=== PATIENT | male | born 2000 | race Caucasian/White ===

== ENCOUNTER → 2024-08-13 13:30 | Outpatient (CLI) | payer OTHER, SELFPAY ==
--- NOTE | 2024-08-13 13:33 | DI.MRI.S_ITS ---
PROCEDURE: MR ANKLE RT WO CON INDICATIONS: APRIN INJURY SHOWING AVULSION TECHNIQUE: Noncontrast sagittal T1 spin echo and T2 fast spin echo with fat saturation, axial proton density fast spin echo and T2 fast spin echo with fat saturation, coronal T1 spin echo and T2 fast spin echo with fat saturation through the ankle/hindfoot. COMPARISON: None. FINDINGS: Image quality: Excellent. Bones and joints: Mild osseous edema at the medial malleolus and medial talus. No focal fracture line is seen. No clearly defined avulsion fragment, although MRI is relatively insensitive for small ossifications. No hindfoot coalitions. No osteochondral injuries of the talar dome. Medial structures: Focal intrasubstance fluid signal is seen within the deep fibers of deltoid ligament suspicious for a moderate grade sprain. Mild tenosynovitis of the distal posterior tibialis tendon. The flexor digitorum longus and flexor hallucis longus tendons are intact. The posterior tibial neurovascular bundle appears normal within the tarsal tunnel, without extrinsic mass effect. Lateral structures: There is full-thickness tearing of the anterior talofibular ligament at its fibular attachment. Low-grade sprain of the calcaneofibular ligament. Posterior talofibular ligament is intact. Anterior and posterior tibiofibular ligaments are intact. [id number] peroneus brevis and longus tendinosis and tenosynovitis. The sinus tarsi demonstrates normal fatty signal. Anterior structures: The tibialis anterior, extensor hallucis longus, and extensor digitorum longus tendons appear intact. Posterior and plantar structures: Achilles tendon is intact. The proximal plantar fascia is intact. No abductor digiti minimi muscle atrophy to suggest Nagy neuropathy. IMPRESSION: 1. Full-thickness tearing of the anterior talofibular ligament near its fibular attachment. Grade 1 sprain of the calcaneofibular ligament. 2. [id number] peroneus brevis and longus tendinosis and tenosynovitis. 3. Grade 2 sprain of the deltoid ligament. 4. Mild posterior tibialis tenosynovitis. 5. Mild osseous contusions at the medial malleolus and medial talus. Approved by: Gamal Chávez M.D. on 08/15/2024 at 9:48
== END ==
PROVIDERS: Referring Provider Student in an Organized Health Care Education/Training Program; Visit Provider Student in an Organized Health Care Education/Training Program
DX: S93.491A Sprain of other ligament of right ankle, initial encounter (principal); S93.411A Sprain of calcaneofibular ligament of right ankle, initial encounter; S93.421A Sprain of deltoid ligament of right ankle, initial encounter; M65.971 Unspecified synovitis and tenosynovitis, right ankle and foot; X58.XXXA Exposure to other specified factors, initial encounter
CPT/HCPCS: 73721